=== PATIENT | male | born 1970 | race Asian ===

== ENCOUNTER 2021-01-25 14:38 | Outpatient (CLI) | payer OTHER ==
--- NOTE | 2021-01-25 16:48 | XRAY Report ---
PROCEDURE: Hand 3 View RT INDICATIONS: R FINGER SWELLING TECHNIQUE: 3 views of the hand(s) acquired. COMPARISON: None FINDINGS: Bones: No fractures or dislocations. No suspicious bony lesions. Soft tissues: No suspicious soft tissue calcifications. IMPRESSION: A source of fourth digit swelling is not identified. Osteomyelitis or foreign body is not seen. 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 No eros inessa arthritis is found. Reviewed by: Yordy Delarosa MD on 01/25/2021 4:47 PM PDT Approved by: Yordy Delarosa MD on 01/25/2021 4:47 PM PDT Station ID: [id number]
== END 2021-01-25 14:39 | disposition home or self-care (01) ==
LOC: DI 14:38
PROVIDERS: ATTEND Physician Assistant Medical
DX: M79.644 Pain in right finger(s) (principal); M25.842 Other specified joint disorders, left hand